=== PATIENT | male | born 1985 | race Caucasian/White ===

== ENCOUNTER 2017-11-03 10:44 | Emergency (ER) | payer OTHER ==
[~2017-11-03] VITALS: Wt 67.7 kg
[2017-11-03] MEDS ORDERED: CARB15DR50 BOTH EARS (14:20)
--- NOTE | 2017-11-03 15:11 | ERD ---
ER Documentation Chief Complaint Chief Complaint RIGHT EAR PAIN X1 WEEK HPI 32 yr old male complaining of cerumen impaction to bilateral ears. Patient has attempted to remove cerumen himself with no alleviation. No nasal congestion. No bleeding or pus from the ears. No severe pain. Muffled hearing. ROS All systems reviewed and are negative except as per history of present illness. Medications Home Meds Active Scripts Carbamide Peroxide* (Debrox*) 6.5% - 15 Ml Drops, 10 DROP BOTH EARS BID, #1 BOTTLE Prov:JOSÉ MIGUEL PAN PA-C 11/03/17 PMhx/Soc History of Surgery: Yes (back and L eye surgery.) Anesthesia Reaction: No Hx Neurological Disorder: No Hx Respiratory Disorders: No Hx Cardiac Disorders: No Hx Psychiatric Problems: No Hx Miscellaneous Medical Probl: No Hx Alcohol Use: No Hx Substance Use: No Hx Tobacco Use: No Smoking Status: Never smoker Physical Exam Vitals Vital Signs Date Time Temp Pulse Resp B/P Pulse Ox O2 Delivery O2 Flow Rate FiO2 11/03/17 10:48 98.3 84 19 118/58 100 Physical Exam GENERAL: The patient is well-appearing, well-nourished, in no acute distress HEENT: Atraumatic. Conjunctivae are pink. Pupils equal, round, and reactive to light. There is no scleral icterus. Cerumen impaction seen bilateral with no visualization of the TMs. Oropharynx clear. No nystagmus or photophobia. NECK: C-spine is soft and supple. There is no meningismus. There is no cervical lymphadenopathy. CHEST: Clear to auscultation bilaterally. There are no rales, wheezes or rhonchi. HEART: Regular rate and rhythm. No murmurs, clicks, rubs or gallops. No S3 or S4. Procedures/MDM ER Course: Hydrogen peroxide applied to both ears to soften Cerumen. Cerumen removed bilaterally with no complication MDM: 32 yr old male complaining of cerumen impaction bilaterally. I have low suspicion for otitis externa or otitis media. I have low suspicion for mastoiditis. Patient has ear irritation secondary to cerumen impaction. Patient is discharged with strict ER precautions. Departure Diagnosis: Primary Impression: Cerumen impaction Condition: Stable Patient Instructions: Cerumen Impaction, Home Care Referrals: COMMUNITY CLINICS YOU HAVE RECEIVED A MEDICAL SCREENING EXAM AND THE RESULTS INDICATE THAT YOU DO NOT HAVE A CONDITION THAT REQUIRES URGENT TREATMENT IN THE EMERGENCY DEPARTMENT. FURTHER EVALUATION AND TREATMENT OF YOUR CONDITION CAN WAIT UNTIL YOU ARE SEEN IN YOUR DOCTORS OFFICE WITHIN THE NEXT 1-2 DAYS. IT IS YOUR RESPONSIBILITY TO MAKE AN APPOINTMENT FOR FOLOW-UP CARE. IF YOU HAVE A PRIMARY DOCTOR --you should call your primary doctor and schedule an appointment IF YOU DO NOT HAVE A PRIMARY DOCTOR YOU CAN CALL OUR PHYSICIAN REFERRAL HOTLINE AT IF YOU CAN NOT AFFORD TO SEE A PHYSICIAN YOU CAN CHOSE FROM THE FOLLOWING [facility] [address] [facility]. [facility] [address] [facility] [facility] [address] [facility] [facility] [address] [facility]. [facility] [address] [facility]. [facility] [address] Additional Instructions: FOLLOW UP WITH YOUR PRIMARY CARE PHYSICIAN TOMORROW.Return to this facility if you are not improving as expected. JOSÉ MIGUEL PAN PA-C Nov 03, 2017 15:11
== END 2017-11-03 14:34 | disposition home or self-care (01) ==
LOC: FTE 10:44
DX: H61.23 Impacted cerumen, bilateral (principal)
CPT/HCPCS: 69209; Z7502

== ENCOUNTER 2019-07-29 18:43 | Emergency (ER) | payer OTHER ==
[~2019-07-29] VITALS: Ht 162.6 cm; Wt 69.6 kg
[~2019-07-29 18:43] MED LIST: CARB15DR50 BOTH EARS
[2019-07-29 19:12] VITALS: Ht 162.6 cm; Wt 69.6 kg
[2019-07-29 21:33] VITALS: BP 122/65; PULSE 78; RESP 17
== END 2019-07-29 21:33 | disposition home or self-care (01) ==
LOC: FTE 18:43
DX: L60.2 Onychogryphosis (principal)
CPT/HCPCS: 99282